=== PATIENT | male | born 1980 | race Caucasian/White ===

== ENCOUNTER 2023-09-05 14:34 | Inpatient (IN) | payer MEDICAID ==
[~2023-09-05] VITALS: Ht 170.2 cm; Wt 138.3 kg
[2023-09-05 14:42] VITALS: BP 131/70; PULSE 102; RESP 18; TEMP 98; O2SAT 89
[2023-09-05 16:03] LABS: BASOPHILS % (AUTO) 0.9 % (0.0-2.0); EOSINOPHILS # (AUTO) 0.1 K/uL (0-0.4); EOSINOPHILS % (AUTO) 2.7 % (0.0-4.0); HEMATOCRIT 44.4 % (36-52); HEMOGLOBIN 14.5 g/dL (12.0-18.0); LYMPHOCYTES # (AUTO) 0.7 K/uL (2.0-11.5); LYMPHOCYTES % (AUTO) 16.3 % (20.5-51.1); MEAN CORPUSCULAR HEMOGLOBIN 30 pg (27-31); MEAN CORPUSCULAR HGB CONC 33 g/dL (33-37); MEAN CORPUSCULAR VOLUME 92.1 fL (80-94); MONOCYTES # (AUTO) 0.4 K/uL (0.8-1.0); MONOCYTES % (AUTO) 9.5 % (1.7-9.3); NEUTROPHILS % (AUTO) 70.6 % (42.2-75.2); PLATELET COUNT (AUTO) 183 K/uL (140-450); RED BLOOD CELL COUNT(AUTO) 4.82 MIL/uL (4.20-6.10); RED CELL DISTRIBUTION WIDTH 14.4 % (11.6-13.7); WHITE BLOOD COUNT (AUTO) 4.3 K/uL (4.8-10.8)
[2023-09-05 16:15] LABS: ALBUMIN 3.4 g/dL (3.4-5.0); ANION GAP 8.2 (8-16); CALCIUM 8.9 mg/dL (8.5-10.1); CARBON DIOXIDE 30.5 mmol/L (21-32); CREATININE 1.2 mg/dL (0.6-1.3); POTASSIUM 4.7 mmol/L (3.5-5.1); TOTAL BILIRUBIN 0.4 mg/dL (0.0-1.0); TOTAL PROTEIN, SERUM 6.7 g/dL (6.4-8.2)
[2023-09-05] MEDS ORDERED: FUROSEMIDE 40 MG/4 ML VIAL IVP ONE (16:30)
[2023-09-05] MEDS ORDERED: ALBUTEROL 0.083% 2.5 MG/3 ML NEBU INH ONE ×2 (18:45→18:51)
[2023-09-05] MEDS ORDERED: methylPREDNISolone SS 125 MG/2 ML VIAL IVP ONE (18:45)
[2023-09-05 18:54] VITALS: PULSE 93; RESP 18; O2SAT 88
[2023-09-05 19:23] LABS: BLOOD GAS PH 7.332 (7.35-7.45)
[2023-09-05 19:24] LABS: BLOOD GAS PCO2 52.2 mmHg (35-45); BLOOD GAS PO2 142.5 mmHg (75-100)
[2023-09-05 19:25] LABS: BLOOD GAS BASE EXCESS 0.2 mmol/L (-2.0-2.0)
[2023-09-05] MEDS ORDERED: NACL 0.9% 500 ML IV STA (21:17)
[2023-09-05] MEDS ORDERED: MIDODRINE 5 MG TAB PO STA (21:31)
[2023-09-05] MEDS ORDERED: HYDROcodone/APAP 7.5/325 MG 1 TAB PO PRN (21:40)
[2023-09-05] MEDS ORDERED: POTASSIUM CHLORIDE 10 MEQ TABER PO PRN (21:40)
[2023-09-05] MEDS ORDERED: DOCUSATE SODIUM 100 MG GELCAP PO PRN (21:40)
[2023-09-05] MEDS ORDERED: ONDANSETRON 4 MG/2 ML VIAL IM/IVP PRN (21:40)
[2023-09-05] MEDS ORDERED: guaiFENesin DM 200/20 MG-10 ML 10 ML UDC PO PRN (21:40)
[2023-09-05] MEDS ORDERED: ACETAMINOPHEN 325 MG TAB PO PRN (21:40)
[2023-09-05] MEDS ORDERED: ZOLPIDEM 5 MG TAB PO PRN (21:40)
[2023-09-05] MEDS ORDERED: ALBUTEROL SULFATE/IPRATROPIU 3 ML SOL IH PRN (21:45)
[2023-09-05 22:09] VITALS: PULSE 79; O2SAT 95
[2023-09-05 22:16] LABS: INR 0.94 (0.8-1.2); PARTIAL THROMBOPLASTIN TIME 27.6 secs (22-35.6); PROTHROMBIN TIME 9.9 secs (10.8-13.4)
[2023-09-05 22:39] LABS: CHOL/HDL RATIO 4.4 (1-4.5); FREE T4 (FREE THYROXINE) 0.99 ng/dL (0.76-1.46); MAGNESIUM 1.7 mg/dL (1.8-2.4); THYROID STIMULATING HORMONE 2.86 uIU/mL (0.34-3.74)
[2023-09-05 22:46] VITALS: PULSE 93; O2SAT 74
[2023-09-05 23:29] VITALS: O2SAT 95
[2023-09-06] VITALS (18 sets, daily range): BP systolic 118–142; BP diastolic 68–88; PULSE 68–116; RESP 16–30; TEMP 98–98.8; O2SAT 92–100
[2023-09-06] MEDS: ALBUTEROL SULFATE/IPRATROPIU 3 ML SOL IH SCH ×3 (07:08→22:11)
[2023-09-06 07:57] LABS: BASOPHILS % (AUTO) 0.1 % (0.0-2.0); HEMATOCRIT 46.5 % (36-52); HEMOGLOBIN 15.1 g/dL (12.0-18.0); LYMPHOCYTES # (AUTO) 0.6 K/uL (2.0-11.5); LYMPHOCYTES % (AUTO) 6.6 % (20.5-51.1); MEAN CORPUSCULAR HEMOGLOBIN 31 pg (27-31); MEAN CORPUSCULAR HGB CONC 33 g/dL (33-37); MONOCYTES # (AUTO) 0.1 K/uL (0.8-1.0); MONOCYTES % (AUTO) 0.9 % (1.7-9.3); NEUTROPHILS % (AUTO) 92.4 % (42.2-75.2); PLATELET COUNT (AUTO) 185 K/uL (140-450); RED BLOOD CELL COUNT(AUTO) 4.94 MIL/uL (4.20-6.10); RED CELL DISTRIBUTION WIDTH 14.6 % (11.6-13.7); WHITE BLOOD COUNT (AUTO) 8.6 K/uL (4.8-10.8)
[2023-09-06 08:40] LABS: ANION GAP 10.9 (8-16); CARBON DIOXIDE 30.7 mmol/L (21-32); CREATININE 1.3 mg/dL (0.6-1.3)
[2023-09-06 08:44] LABS: POTASSIUM 5.6 mmol/L (3.5-5.1)
[2023-09-06] MEDS ORDERED: FUROSEMIDE 40 MG/4 ML VIAL IVP SCH (09:00)
[2023-09-06] MEDS: PANTOPRAZOLE 40 MG TABEC PO SCH (09:39)
[2023-09-06] MEDS ORDERED: MYCOPHENOLATE 250 MG CAP PO SCH (10:50)
[2023-09-06] MEDS: TACROLIMUS 1 MG CAP PO SCH (11:03)
[2023-09-06] MEDS: MYCOPHENOLATE 250 MG CAP PO SCH ×2 (11:04→20:03)
[2023-09-06] MEDS ORDERED: SODIUM POLYSTYRENE 15 GM/60 ML UDBTL PO SCH (11:05)
[2023-09-06] MEDS ORDERED: TAMS0.4C96 PO (12:16)
[2023-09-06] MEDS ORDERED: LOSA-272 PO (12:16)
[2023-09-06] MEDS ORDERED: TACR1CAP17 PO (12:16)
[2023-09-06] MEDS ORDERED: ALLO100T21 PO (12:16)
[2023-09-06] MEDS ORDERED: MYCO250C PO (12:16)
[2023-09-06] MEDS ORDERED: ASPI-1822 PO (12:16)
[2023-09-06] MEDS ORDERED: GLYB-200 PO (12:16)
[2023-09-06] MEDS ORDERED: GABA300C PO (12:16)
[2023-09-06] MEDS ORDERED: ACT30 PO (12:16)
[2023-09-06] MEDS ORDERED: VIT1TABL36 PO (12:16)
[2023-09-06] MEDS ORDERED: LISI5TAB18 PO (12:16)
[2023-09-06] MEDS ORDERED: FURO20TA8 PO (12:16)
[2023-09-06] MEDS ORDERED: AMLO10TA PO (12:16)
[2023-09-06] MEDS ORDERED: K PH1TAB PO (12:16)
[2023-09-06] MEDS: amLODIPine 5 MG TAB PO SCH (15:38)
[2023-09-06] MEDS: glyBURIDE 5 MG TAB PO SCH ×2 (17:22→17:23)
[2023-09-06 18:05] LABS: APPEARANCE,URINE CLEAR (CLEAR); BILIRUBIN,URINE NEGATIVE (NEGATIVE); BLOOD, URINE NEGATIVE (NEGATIVE); COLOR,URINE YELLOW (YELLOW); LEUKOCYTE ESTERASE ,URINE NEGATIVE (NEGATIVE); NITRITE, URINE NEGATIVE (NEGATIVE); PH,URINE 5.5 (5.0-9.0); PROTEIN,URINE NEGATIVE (NEGATIVE); UGLUCOSE NEGATIVE (NEGATIVE); UROBILINOGEN,URINE 0.2 EU/dL (0.2 - 1)
[2023-09-06] MEDS ORDERED: TACROLIMUS PO SCH (21:00)
[2023-09-06] MEDS ORDERED: TACROLIMUS 0.5 MG CAP PO SCH (21:00)
[2023-09-06 22:59] LABS: APPEARANCE,URINE CLEAR (CLEAR); BILIRUBIN,URINE NEGATIVE (NEGATIVE); BLOOD, URINE NEGATIVE (NEGATIVE); COLOR,URINE YELLOW (YELLOW); LEUKOCYTE ESTERASE ,URINE NEGATIVE (NEGATIVE); NITRITE, URINE NEGATIVE (NEGATIVE); PROTEIN,URINE NEGATIVE (NEGATIVE); UGLUCOSE NEGATIVE (NEGATIVE); UROBILINOGEN,URINE 0.2 EU/dL (0.2 - 1)
[2023-09-06 23:11] LABS: AMPHETAMINE, URINE NEGATIVE ng/ml (NEG <=1000); BARBITURATE, URINE NEGATIVE ng/ml (NEG <=200); BENZODIAZEPINE, URINE NEGATIVE ng/mL (NEG <=200); CANNABINOID, URINE NEGATIVE ng/mL (NEG <=50); COCAINE, URINE NEGATIVE ng/mL (NEG <=300); OPIATE, URINE NEGATIVE ng/mL (NEG <=2000); PHENCYCLIDINE SCREEN,URINE NEGATIVE ng/mL (NEG <=25)
[2023-09-07] VITALS (12 sets, daily range): BP systolic 134–159; BP diastolic 72–98; PULSE 81–102; RESP 18–20; TEMP 97–206.6; O2SAT 91–99
[2023-09-07 06:22] LABS: BASOPHILS % (AUTO) 0.3 % (0.0-2.0); EOSINOPHILS % (AUTO) 0.1 % (0.0-4.0); HEMOGLOBIN 14.4 g/dL (12.0-18.0); LYMPHOCYTES # (AUTO) 0.9 K/uL (2.0-11.5); MEAN CORPUSCULAR HEMOGLOBIN 31 pg (27-31); MEAN CORPUSCULAR HGB CONC 33 g/dL (33-37); MEAN CORPUSCULAR VOLUME 93.3 fL (80-94); MONOCYTES # (AUTO) 0.4 K/uL (0.8-1.0); MONOCYTES % (AUTO) 6.1 % (1.7-9.3); NEUTROPHILS # (AUTO) 5.3 K/uL (1.8-7.7); NEUTROPHILS % (AUTO) 80.5 % (42.2-75.2); PLATELET COUNT (AUTO) 182 K/uL (140-450); RED BLOOD CELL COUNT(AUTO) 4.71 MIL/uL (4.20-6.10); RED CELL DISTRIBUTION WIDTH 14.2 % (11.6-13.7); WHITE BLOOD COUNT (AUTO) 6.6 K/uL (4.8-10.8)
[2023-09-07 06:53] LABS: ANION GAP 7.6 (8-16); CALCIUM 8.9 mg/dL (8.5-10.1); CREATININE 1.1 mg/dL (0.6-1.3); POTASSIUM 4.6 mmol/L (3.5-5.1)
[2023-09-07] MEDS: ALBUTEROL SULFATE/IPRATROPIU 3 ML SOL IH SCH ×2 (07:32→14:41)
[2023-09-07] MEDS: PANTOPRAZOLE 40 MG TABEC PO SCH (08:08)
[2023-09-07] MEDS: amLODIPine 5 MG TAB PO SCH (08:09)
[2023-09-07] MEDS: TACROLIMUS 1 MG CAP PO SCH (08:10)
[2023-09-07] MEDS: MYCOPHENOLATE 250 MG CAP PO SCH (08:10)
[2023-09-07] MEDS: glyBURIDE 5 MG TAB PO SCH (08:12)
[2023-09-07] MEDS ORDERED: FURO-570 PO (08:48)
[2023-09-07] MEDS ORDERED: TAMSULOSIN 0.4 MG CAP PO SCH (09:00)
[2023-09-07] MEDS ORDERED: FUROSEMIDE 20 MG TAB PO SCH (09:00)
[2023-09-07] MEDS ORDERED: LOSARTAN 50 MG TAB PO SCH (09:00)
[2023-09-07] MEDS ORDERED: ASPIRIN 81 MG TAB.CHEW PO SCH (09:00)
[2023-09-07 17:55] LABS: HEMOGLOBIN A1C 6.7 % (4.8-5.6)
== END 2023-09-07 17:43 | DRG 720 ==
LOC: MED 14:34 → MMU 19:11 → MIC 09-06 05:26 → MTU 09-06 18:25
PROVIDERS: ADMIT Family Medicine; ATTEND Family Medicine
PROC: 5A09357 Assistance with Respiratory Ventilation, Less than 24 Consecutive Hours, Continuous Positive Airway Pressure (ICD-10-PCS; principal; 2023-09-05)
PROC: 5A09357 Assistance with Respiratory Ventilation, Less than 24 Consecutive Hours, Continuous Positive Airway Pressure (ICD-10-PCS; 2023-09-07)
DX: A41.9 Sepsis, unspecified organism (principal); N17.0 Acute kidney failure with tubular necrosis; J96.02 Acute respiratory failure with hypercapnia; J18.9 Pneumonia, unspecified organism; N18.6 End stage renal disease; I11.0 Hypertensive heart disease with heart failure; I50.9 Heart failure, unspecified; J96.22 Acute and chronic respiratory failure with hypercapnia; E87.5 Hyperkalemia; E83.42 Hypomagnesemia; G47.33 Obstructive sleep apnea (adult) (pediatric); E11.9 Type 2 diabetes mellitus without complications; Z94.0 Kidney transplant status; Z79.82 Long term (current) use of aspirin; Z79.899 Other long term (current) drug therapy; Z79.624 Long term (current) use of inhibitors of nucleotide synthesis; Z82.49 Family history of ischemic heart disease and other diseases of the circulatory system; Z83.3 Family history of diabetes mellitus
CPT/HCPCS: 36415; 36600; 71045; 71275; 80048; 80053; 80305; 81003; 82150; 82803; 83036; 83690; 83735; 83880; 84100; 84436; 84439; 84443; 84479; 84484; 85025; 85379; 85610; 85730; 87070; 87081; 87205; 93005; 93970; 94010; 94640; 94660; 96374; 96375; 99285; J0696; J1940; J2930; J7060; J7507; J7517; J7613; Q0092; Q9967

== ENCOUNTER 2023-12-13 09:34 | Emergency (ER) | payer MEDICAID, OTHER ==
[~2023-12-13] VITALS: Ht 167.6 cm; Wt 90.7 kg
[~2023-12-13 09:34] MED LIST: ACT30 PO; ALLO100T21 PO; AMLO10TA PO; ASPI-1822 PO; FURO-570 PO; GABA300C PO; GLYB-200 PO; K PH1TAB PO; LISI5TAB18 PO; LOSA-272 PO; MYCO250C PO; TACR1CAP17 PO; TAMS0.4C96 PO; VIT1TABL36 PO
[2023-12-13 10:27] VITALS: BP 158/86; PULSE 86; RESP 20; TEMP 98; O2SAT 98
[2023-12-13 12:03] VITALS: BP 158/86; PULSE 86; RESP 20; TEMP 98; O2SAT 98
== END 2023-12-13 12:03 | disposition left against medical advice (07) ==
LOC: MED 09:34
DX: R07.9 Chest pain, unspecified (principal); E11.9 Type 2 diabetes mellitus without complications; I10 Essential (primary) hypertension; Z79.4 Long term (current) use of insulin; Z79.899 Other long term (current) drug therapy
CPT/HCPCS: 93005; 99283